=== PATIENT | male | born 1995 | race Two or more races ===

== ENCOUNTER 2016-04-08 05:13 | Day surgery (SDC) | payer OTHER ==
[~2016-04-08 05:13] MED LIST: CEFAZOLIN 2 GM/D5W RTU 2 GM/50 ML RTUPB IV PRN; LIDOCAINE 0.5% INJ-PF (5 MG/ML) 50 ML SDV SUBCUT PRN; RINGERS SOLUTION,LACTATED 1,000 ML IV PRN
[2016-04-08] MEDS ORDERED: BUPIVACAINE HCL 0.25 % INJ/PF (2.5 MG/1 ML) 30 ML VIAL ONE (06:40)
[2016-04-08] MEDS ORDERED: PROPOFOL INJ 200 MG/20 ML VIAL IV ONE (06:44)
[2016-04-08] MEDS ORDERED: FENTANYL CITRATE INJ/PF 250 MCG/5 ML AMPULE ONE (06:44)
[2016-04-08] MEDS ORDERED: MIDAZOLAM 2 MG/2 ML INJ ONE (06:44)
[2016-04-08] MEDS ORDERED: FENTANYL CITRATE INJ/PF 100 MCG/2 ML AMPUL IV PRN ×3 (07:51)
[2016-04-08] MEDS ORDERED: DIPHENHYDRAMINE HCL 50 MG/ML VIAL IV PRN (07:51)
[2016-04-08] MEDS ORDERED: MEPERIDINE HCL/PF INJ 25 MG/1 ML DISP.SYRIN IV PRN (07:51)
[2016-04-08] MEDS ORDERED: MORPHINE SULFATE 10 MG/ML INJ IV PRN (07:51)
[2016-04-08] MEDS ORDERED: OXYCODONE-ACETAMINOPHEN 5-325 MG TABLET PO PRN ×3 (07:51→10:36)
[2016-04-08] MEDS ORDERED: PROMETHAZINE HCL INJ 25 MG/1 ML VIAL IV PRN ×2 (07:51)
[2016-04-08] MEDS: FENTANYL CITRATE INJ/PF 100 MCG/2 ML AMPUL ONE ×2 (09:39→09:45)
[2016-04-08] MEDS ORDERED: OXYCODONE-ACETAMINOPHEN 5-325 MG TABLET ONE (10:25)
[2016-04-08] MEDS ORDERED: ONDANSETRON HCL INJ/PF 4 MG/2 ML SDV IV PRN (10:34)
[2016-04-08 12:45] VITALS: BP 121/62
--- NOTE | 2016-04-08 12:48 | OPERATIVE REPORT E ---
Operative Report NAME: RAVEN BENZ : 1995 AGE: 20Y DATE OF SURGERY: 04/08/2016 ROOM: SURGEON: GILDA HANSON D.O. INDICATIONS OF PROCEDURE: The patient is a 20-year-old male with a history of left-sided scrotal pain with a left grade 2 varicocele. He was counseled of the risks, benefits, and side effects of a left-sided varicocelectomy and consent was received. PREOPERATIVE DIAGNOSIS: Left grade 2 varicocele. POSTOPERATIVE DIAGNOSIS: Left grade 2 varicocele. OPERATION PERFORMED: Left microscopic varicocelectomy. ANESTHESIA: General. INTRAVENOUS FLUIDS: 1500 mL of lactated Ringer's. ESTIMATED BLOOD LOSS: Less than 5 mL. URINE OUTPUT: 0. SPECIMEN: None. DRAINS: None. IMPLANTS: None. FINDINGS: Two dilated veins in pampiniform plexus. DESCRIPTION OF PROCEDURE: The patient was met in the preop holding area. The risks, benefits, and side effects of a left-sided varicocelectomy were reviewed with the patient, and he consented to proceed as above. The patient was placed on the table in a supine position where general anesthesia was induced. He was sterilely prepped and draped in the usual fashion. A timeout was performed, which revealed proper patient, proper procedure,proper laterality and proper preoperative antibiotics administered. We proceeded with a 4 cm incision was made just superior and lateral to the external inguinal ring deepened down into the external oblique fascia was opened directly along its fibers with the Metzenbaum scissors. The cord was bluntly dissected from its surrounding attachments and then isolated with a Chevy drain. The microscope was brought into the field. The external spermatic fascia and internal spermatic fascia were opened sharply and explored demonstrating 2 dilated veins in pampiniform plexus. Location of the artery was demonstrated with Doppler ultrasound. We sequentially ligated both veins and then returned the cord to its orthotopic position. Cord block was performed with 0.25% Marcaine. The wound was irrigated. The external oblique fascia was closed with a 2-0 Vicryl in a running fashion and then, a 3-0 Vicryl was used to close David's layer and the subcutaneous fat. Field block was performed with 0.25% Marcaine and the skin was closed with a running 4-0 Monocryl in a subcuticular fashion. The skin was sealed with Dermabond. A scrotal support and scrotal gauze were applied. DICTATING PHYSICIAN: GILDA HANSON D.O. [id number] PHY#: [id number] ID: [id number] JOB#: [id number] ACCT: [id number] cc:GILDA HANSON D.O. > [facility]
[2016-04-08] MEDS ORDERED: SUCCINYLCHOLINE CHLORIDE INJ 200 MG/10 ML VIAL ONE (13:24)
[2016-04-08] MEDS ORDERED: DEXAMETHASONE SOD PHOSPHATE INJ 4 MG/1 ML VIAL ONE (13:24)
[2016-04-08] MEDS ORDERED: LIDOCAINE 2% INJ-PF (20 MG/ML) 10 ML AMPUL ONE (13:24)
[2016-04-08] MEDS ORDERED: ONDANSETRON HCL INJ/PF 4 MG/2 ML SDV ONE (13:24)
--- NOTE | 2016-04-08 17:48 | OPERATIVE REPORT E ---
Operative Report NAME: RAVEN BENZ : 1995 AGE: 20Y DATE OF SURGERY: 04/08/2016 ROOM: INDICATIONS FOR PROCEDURE: The patient is a 20-year-old male with history of left-sided scrotal pain and a left grade 2 varicocele. He was counseled on the risks, benefits and side effects of left-sided microscopic varicocelectomy and consented to proceed. PREOPERATIVE DIAGNOSIS: LEFT GRADE 2 VARICOCELE. POSTOPERATIVE DIAGNOSIS: LEFT GRADE 2 VARICOCELE. OPERATION: Left microscopic varicocelectomy. SURGEON: GILDA HANSON D.O. ANESTHESIA: General. INTRAVENOUS FLUIDS: 1500 mL lactated Ringer's. ESTIMATED BLOOD LOSS: Less than 5 mL. URINE OUTPUT: Not recorded. TISSUE REMOVED OR ALTERED: None. COMPLICATIONS: None. IMPLANTS: None. DRAINS: None. FINDINGS: Two dilated veins in the pampiniform plexus. DESCRIPTION OF PROCEDURE: The patient was met in the preoperative holding area. Risks, benefits and side effects of a left-sided microscopic varicocelectomy were again reviewed with the patient. He consented to proceed. He was brought to the operative theater and placed on the table in the supine position, where general anesthesia was induced. He was then sterilely prepped and draped in the usual fashion. Time-out was performed to ensure proper patient, proper procedure, proper laterality and he had preoperative antibiotics administered and with all in agreement, we proceeded. We began by making a 4 cm incision just superior and lateral to the external inguinal ring. This was deepened down to the external oblique fascia which was opened in the direction of his fibers with the Metzenbaum scissors. The cord was bluntly dissected from its attachment in the canal and then isolated with a Chevy drain. The external and internal spermatic fascia were entered sharply and the pampiniform plexus identified. There were 2 dilated veins. The artery was identified with Doppler ultrasound and avoided. We sequentially ligated the dilated veins. The cord was then returned to the canal after attaining hemostasis. A cord block was performed with 0.25% Marcaine. The external oblique fascia was closed with a running 2-0 Vicryl suture. We then closed David with interrupted 3-0 Vicryl sutures and subcutaneous fat as well. The skin was closed with a running 4-0 Vicryl in a subcuticular fashion and the skin sealed with Dermabond. Scrotal support and fluff gauze were then placed as well. The patient tolerated the procedure well. He was awakened, taken to the PACU in good condition. At the conclusion of the case, all instrument, sponge and needle counts were complete and correct. DICTATING PHYSICIAN: GILDA HANSON D.O. [id number] PHY#: [id number] ID: [id number] JOB#: [id number] ACCT: [id number] cc:GILDA HANSON D.O. > [facility]TDD
[2016-04-08] MEDS ORDERED: DOCUSATE SODIUM 100 MG CAPSULE PO SCH (22:00)
== END 2016-04-08 11:50 | disposition home or self-care (01) ==
LOC: OROUT 05:13
PROVIDERS: ATTEND Surgery
PROC: 0VBG0ZZ Excision of Left Spermatic Cord, Open Approach (ICD-10-PCS; principal; 2016-04-08 07:30)
DX: I86.1 Scrotal varices (principal)
CPT/HCPCS: 55535; J2250; J1100; J3010 ×2; J0330; J2405; J2704; J3490; J0690; 920